=== PATIENT | male | born 1970 | race African-American/Black ===

== ENCOUNTER 2021-11-08 09:43 | Inpatient (IN) | payer OTHER ==
[2021-11-08 10:10] VITALS: BMI 30.2
[2021-11-08] MEDS ORDERED: ONDANSETRON *ODT* 4 MG TABLET SL PRN (10:44)
[2021-11-08] MEDS ORDERED: NALOXONE HCL (KLOXXADO) 8 MG SPRAY NS PRN (10:44)
[2021-11-08] MEDS ORDERED: MAG HYDROX/AL HYDROX/SIMETH 30 ML UNIT-DOSE CUP PO PRN (10:44)
[2021-11-08] MEDS ORDERED: MAGNESIUM CITRATE 300 ML BOTTLE PO PRN (10:44)
[2021-11-08] MEDS ORDERED: IBUPROFEN 400 MG TABLET (FP) PO PRN (10:44)
[2021-11-08] MEDS ORDERED: ACETAMINOPHEN 325 MG TABLET (FP) PO PRN ×2 (10:44)
[2021-11-08] MEDS ORDERED: LOPERAMIDE HCL 2 MG CAPSULE PO PRN (10:44)
[2021-11-08] MEDS ORDERED: IBUPROFEN 600 MG TABLET (FP) PO PRN (10:44)
[2021-11-08] MEDS ORDERED: DICYCLOMINE HCL 10 MG CAPSULE PO PRN (10:44)
[2021-11-08] MEDS ORDERED: MAGNESIUM HYDROX 2400MG/30ML ORAL SUSPENSION 30 ML CUP PO PRN (10:44)
[2021-11-08] MEDS ORDERED: BENZOCAINE/MENTHOL (CHLORASEPTIC ) LOZENGE MM PRN (10:44)
[2021-11-08] MEDS ORDERED: BISMUTH SUBSALICYLATE 262 MG/15 ML BTL PO PRN (10:44)
[2021-11-08] MEDS ORDERED: NICOTINE 10 MG CARTRIDGE (INHALER) IH PRN (10:44)
[2021-11-08] MEDS ORDERED: ALBUTEROL SO4 HFA INHALER IH PRN (13:33)
[2021-11-08] MEDS: hydrOXYzine PAMOATE 25 MG CAPSULE (FP) PO SCH ×3 (14:09→22:26)
[2021-11-08] MEDS: PRENATAL VITAMINS W/ FOLIC ACID TABLET (FP) PO SCH (14:09)
[2021-11-08 15:43] LABS: HEMOGLOBIN 12.8 GM/dL (11.7-16.9); MCH 30.5 pg (25.7-33.7); MCHC 32.7 g/dl (32.0-35.9); MEAN CELL VOLUME 93.2 fl (80-96); MEAN PLT VOLUME 9.4 fl (7.5-11.1); PLATELET COUNT 214 10^3/uL (134-434); RBC 4.19 M/mm3 (4.00-5.60); RDW 14.5 % (11.9-15.9); WHITE BLOOD COUNT 6.3 K/mm3 (4.0-10.0)
[2021-11-08 15:48] LABS: BLOOD UREA NITROGEN 11.5 mg/dL (7-18)
[2021-11-08 15:49] LABS: CALCIUM 8.7 mg/dL (8.5-10.1)
[2021-11-08 15:50] LABS: ALBUMIN 3.1 g/dl (3.4-5.0)
[2021-11-08 15:51] LABS: CREATININE 1.1 mg/dL (0.55-1.3)
[2021-11-08 15:53] LABS: BILIRUBIN,TOTAL 0.6 mg/dL (0.2-1); TOT PROT 6.8 g/dl (6.4-8.2)
[2021-11-08] MEDS: METHOCARBAMOL 500 MG TABLET PO PRN (17:45)
[2021-11-08] MEDS ORDERED: cloNIDine HCL 0.1 MG TABLET PO PRN (17:53)
[2021-11-08] MEDS ORDERED: methaDONE HCL 10 MG TABLET (FOR DETOX USE ONLY) PO ONE (17:53)
[2021-11-08] MEDS: THIAMINE HCL 100 MG TABLET (FP) PO SCH (22:26)
[2021-11-08] MEDS: MELATONIN 5 MG TABLETS PO SCH (22:26)
[2021-11-08] MEDS: NICOTINE POLACRILEX 4 MG GUM BUC PRN (22:29)
[2021-11-09] MEDS: hydrOXYzine PAMOATE 25 MG CAPSULE (FP) PO SCH ×5 (05:02→23:47)
[2021-11-09] MEDS ORDERED: methaDONE HCL 10 MG TABLET (FOR DETOX USE ONLY) ONE (09:26)
[2021-11-09] MEDS: PRENATAL VITAMINS W/ FOLIC ACID TABLET (FP) PO SCH (10:09)
[2021-11-09] MEDS: NICOTINE POLACRILEX 4 MG GUM BUC PRN ×3 (10:09→18:53)
[2021-11-09] MEDS: MELATONIN 5 MG TABLETS PO SCH (23:46)
[2021-11-09] MEDS: THIAMINE HCL 100 MG TABLET (FP) PO SCH (23:47)
[2021-11-10] MEDS: hydrOXYzine PAMOATE 25 MG CAPSULE (FP) PO SCH ×6 (05:17→22:11)
[2021-11-10] MEDS: NICOTINE POLACRILEX 4 MG GUM BUC PRN ×3 (06:01→17:11)
[2021-11-10] MEDS ORDERED: methaDONE HCL 10 MG TABLET (FOR DETOX USE ONLY) PO ONE (10:00)
[2021-11-10] MEDS: METHOCARBAMOL 500 MG TABLET PO PRN (10:22)
[2021-11-10] MEDS: PRENATAL VITAMINS W/ FOLIC ACID TABLET (FP) PO SCH (10:22)
[2021-11-10] MEDS: MELATONIN 5 MG TABLETS PO SCH (22:11)
[2021-11-10] MEDS: THIAMINE HCL 100 MG TABLET (FP) PO SCH (22:11)
[2021-11-11] MEDS: NICOTINE POLACRILEX 4 MG GUM BUC PRN ×3 (06:13→19:00)
[2021-11-11] MEDS: hydrOXYzine PAMOATE 25 MG CAPSULE (FP) PO SCH ×5 (06:13→23:17)
[2021-11-11] MEDS ORDERED: methaDONE HCL 10 MG TABLET (FOR DETOX USE ONLY) ONE (09:55)
[2021-11-11] MEDS: METHOCARBAMOL 500 MG TABLET PO PRN ×2 (10:25→19:00)
[2021-11-11] MEDS: PRENATAL VITAMINS W/ FOLIC ACID TABLET (FP) PO SCH (10:25)
[2021-11-11] MEDS: MELATONIN 5 MG TABLETS PO SCH (23:16)
[2021-11-11] MEDS: THIAMINE HCL 100 MG TABLET (FP) PO SCH (23:17)
[2021-11-12] MEDS: hydrOXYzine PAMOATE 25 MG CAPSULE (FP) PO SCH ×5 (06:16→22:10)
[2021-11-12] MEDS: NICOTINE POLACRILEX 4 MG GUM BUC PRN ×3 (06:28→22:11)
[2021-11-12] MEDS ORDERED: methaDONE HCL 10 MG TABLET (FOR DETOX USE ONLY) PO ONE (10:00)
[2021-11-12] MEDS: PRENATAL VITAMINS W/ FOLIC ACID TABLET (FP) PO SCH (10:12)
[2021-11-12] MEDS: METHOCARBAMOL 500 MG TABLET PO PRN ×2 (10:14→22:10)
[2021-11-12] MEDS: THIAMINE HCL 100 MG TABLET (FP) PO SCH (22:10)
[2021-11-12] MEDS: MELATONIN 5 MG TABLETS PO SCH (22:10)
[2021-11-13] MEDS: hydrOXYzine PAMOATE 25 MG CAPSULE (FP) PO SCH ×2 (05:32→11:05)
[2021-11-13] MEDS: NICOTINE POLACRILEX 4 MG GUM BUC PRN ×2 (05:33→12:10)
[2021-11-13 06:26] VITALS: TEMP 97.7
[2021-11-13 09:11] VITALS: BP 117/57; PULSE 77
[2021-11-13] MEDS: PRENATAL VITAMINS W/ FOLIC ACID TABLET (FP) PO SCH (11:05)
== END 2021-11-13 12:15 | disposition other institution (70) | DRG 773 ==
LOC: YASAS 09:43 → Y6N 12:42
PROVIDERS: ADMIT Allergy & Immunology; ATTEND Surgery
PROC: HZ2ZZZZ Detoxification Services for Substance Abuse Treatment (ICD-10-PCS; principal; 2021-11-08)
DX: F11.23 Opioid dependence with withdrawal (principal); F10.20 Alcohol dependence, uncomplicated; F14.10 Cocaine abuse, uncomplicated; F12.20 Cannabis dependence, uncomplicated; F17.213 Nicotine dependence, cigarettes, with withdrawal; F41.9 Anxiety disorder, unspecified; F32.A Depression, unspecified
CPT/HCPCS: 36415; 80053; 85027; 86780; 93005; 93010; C9803-CS; U0003; U0005

== ENCOUNTER 2021-11-13 12:26 | Inpatient (IN) | payer OTHER ==
[2021-11-13] MEDS ORDERED: guaiFENesin 200 MG/10 ML 10 ML UNIT-DOSE CUPS PO PRN (12:30)
[2021-11-13] MEDS ORDERED: MAGNESIUM CITRATE 300 ML BOTTLE PO PRN (12:30)
[2021-11-13] MEDS ORDERED: LOPERAMIDE HCL 2 MG CAPSULE PO PRN (12:30)
[2021-11-13] MEDS ORDERED: ACETAMINOPHEN 325 MG TABLET (FP) PO PRN (12:30)
[2021-11-13] MEDS ORDERED: MAGNESIUM HYDROX 2400MG/30ML ORAL SUSPENSION 30 ML CUP PO PRN (12:30)
[2021-11-13] MEDS ORDERED: P-EPHED 60MG/TRIPROLIDI 2.5MG TABLET PO PRN (12:30)
[2021-11-13] MEDS ORDERED: NICOTINE 10 MG CARTRIDGE (INHALER) IH PRN (12:30)
[2021-11-13] MEDS ORDERED: hydrOXYzine PAMOATE 25 MG CAPSULE (FP) PO PRN (12:30)
[2021-11-13] MEDS ORDERED: MAG HYDROX/AL HYDROX/SIMETH 30 ML UNIT-DOSE CUP PO PRN (12:30)
[2021-11-13] MEDS: IBUPROFEN 400 MG TABLET (FP) PO PRN (17:55)
[2021-11-13] MEDS: NICOTINE POLACRILEX 2 MG GUM BUC PRN (17:55)
[2021-11-13] MEDS: THIAMINE HCL 100 MG TABLET (FP) PO SCH (22:31)
[2021-11-13] MEDS: MELATONIN 5 MG TABLETS PO SCH (22:31)
[2021-11-14] MEDS: NICOTINE POLACRILEX 2 MG GUM BUC PRN (07:21)
[2021-11-14] MEDS: PRENATAL VITAMINS W/ FOLIC ACID TABLET (FP) PO SCH (12:09)
[2021-11-14] MEDS: IBUPROFEN 400 MG TABLET (FP) PO PRN (14:25)
[2021-11-14] MEDS: THIAMINE HCL 100 MG TABLET (FP) PO SCH (21:29)
[2021-11-14] MEDS: MELATONIN 5 MG TABLETS PO SCH (21:29)
[2021-11-15] MEDS: NICOTINE POLACRILEX 2 MG GUM BUC PRN ×3 (06:33→12:56)
[2021-11-15] MEDS: PRENATAL VITAMINS W/ FOLIC ACID TABLET (FP) PO SCH (09:32)
[2021-11-15] MEDS: THIAMINE HCL 100 MG TABLET (FP) PO SCH (22:37)
[2021-11-15] MEDS: MELATONIN 5 MG TABLETS PO SCH (22:37)
[2021-11-16] MEDS: NICOTINE POLACRILEX 2 MG GUM BUC PRN ×2 (07:56→11:25)
[2021-11-16] MEDS: PRENATAL VITAMINS W/ FOLIC ACID TABLET (FP) PO SCH (10:36)
[2021-11-16] MEDS: THIAMINE HCL 100 MG TABLET (FP) PO SCH (23:45)
[2021-11-16] MEDS: MELATONIN 5 MG TABLETS PO SCH (23:45)
[2021-11-17] MEDS: NICOTINE POLACRILEX 2 MG GUM BUC PRN ×3 (06:34→18:01)
[2021-11-17] MEDS: PRENATAL VITAMINS W/ FOLIC ACID TABLET (FP) PO SCH (10:22)
[2021-11-17] MEDS: MELATONIN 5 MG TABLETS PO SCH (21:44)
[2021-11-17] MEDS: THIAMINE HCL 100 MG TABLET (FP) PO SCH (21:44)
[2021-11-18] MEDS: NICOTINE POLACRILEX 2 MG GUM BUC PRN ×3 (06:20→21:19)
[2021-11-18] MEDS: PRENATAL VITAMINS W/ FOLIC ACID TABLET (FP) PO SCH (10:42)
[2021-11-18] MEDS: MELATONIN 5 MG TABLETS PO SCH (21:19)
[2021-11-18] MEDS: THIAMINE HCL 100 MG TABLET (FP) PO SCH (21:19)
[2021-11-19] MEDS: NICOTINE POLACRILEX 2 MG GUM BUC PRN ×2 (09:15→16:22)
[2021-11-19] MEDS: PRENATAL VITAMINS W/ FOLIC ACID TABLET (FP) PO SCH (11:01)
[2021-11-19] MEDS: MELATONIN 5 MG TABLETS PO SCH (23:57)
[2021-11-19] MEDS: THIAMINE HCL 100 MG TABLET (FP) PO SCH (23:57)
[2021-11-20] MEDS: NICOTINE POLACRILEX 2 MG GUM BUC PRN ×2 (06:12→15:40)
[2021-11-20] MEDS: PRENATAL VITAMINS W/ FOLIC ACID TABLET (FP) PO SCH (11:24)
[2021-11-20] MEDS: MELATONIN 5 MG TABLETS PO SCH (22:00)
[2021-11-20] MEDS: THIAMINE HCL 100 MG TABLET (FP) PO SCH (22:00)
[2021-11-21] MEDS: NICOTINE POLACRILEX 2 MG GUM BUC PRN ×4 (07:48→19:00)
[2021-11-21] MEDS: PRENATAL VITAMINS W/ FOLIC ACID TABLET (FP) PO SCH (10:09)
[2021-11-21] MEDS: THIAMINE HCL 100 MG TABLET (FP) PO SCH (21:34)
[2021-11-21] MEDS: MELATONIN 5 MG TABLETS PO SCH (21:34)
[2021-11-22] MEDS: NICOTINE POLACRILEX 2 MG GUM BUC PRN ×2 (06:36→17:52)
[2021-11-22] MEDS: PRENATAL VITAMINS W/ FOLIC ACID TABLET (FP) PO SCH (11:04)
[2021-11-22] MEDS: THIAMINE HCL 100 MG TABLET (FP) PO SCH (22:25)
[2021-11-22] MEDS: MELATONIN 5 MG TABLETS PO SCH (22:25)
[2021-11-23] MEDS: NICOTINE POLACRILEX 2 MG GUM BUC PRN ×2 (06:16→17:58)
[2021-11-23] MEDS: PRENATAL VITAMINS W/ FOLIC ACID TABLET (FP) PO SCH (10:58)
[2021-11-23] MEDS: THIAMINE HCL 100 MG TABLET (FP) PO SCH (22:10)
[2021-11-23] MEDS: MELATONIN 5 MG TABLETS PO SCH (22:10)
[2021-11-24] MEDS: NICOTINE POLACRILEX 2 MG GUM BUC PRN ×4 (06:19→21:38)
[2021-11-24] MEDS: PRENATAL VITAMINS W/ FOLIC ACID TABLET (FP) PO SCH (10:29)
[2021-11-24] MEDS: MELATONIN 5 MG TABLETS PO SCH (21:37)
[2021-11-24] MEDS: THIAMINE HCL 100 MG TABLET (FP) PO SCH (21:37)
[2021-11-25] MEDS: NICOTINE POLACRILEX 2 MG GUM BUC PRN ×2 (06:56→14:42)
[2021-11-25] MEDS: PRENATAL VITAMINS W/ FOLIC ACID TABLET (FP) PO SCH (10:46)
[2021-11-25] MEDS: MELATONIN 5 MG TABLETS PO SCH (21:53)
[2021-11-25] MEDS: THIAMINE HCL 100 MG TABLET (FP) PO SCH (21:53)
[2021-11-26] MEDS: NICOTINE POLACRILEX 2 MG GUM BUC PRN ×4 (07:05→17:56)
[2021-11-26] MEDS: PRENATAL VITAMINS W/ FOLIC ACID TABLET (FP) PO SCH (10:01)
[2021-11-26] MEDS: MELATONIN 5 MG TABLETS PO SCH (21:47)
[2021-11-26] MEDS: THIAMINE HCL 100 MG TABLET (FP) PO SCH (21:47)
[2021-11-27] MEDS: NICOTINE POLACRILEX 2 MG GUM BUC PRN ×2 (06:10→15:13)
[2021-11-27] MEDS: PRENATAL VITAMINS W/ FOLIC ACID TABLET (FP) PO SCH (10:40)
[2021-11-27] MEDS: MELATONIN 5 MG TABLETS PO SCH (22:38)
[2021-11-27] MEDS: THIAMINE HCL 100 MG TABLET (FP) PO SCH (22:38)
[2021-11-28] MEDS: PRENATAL VITAMINS W/ FOLIC ACID TABLET (FP) PO SCH (08:15)
[2021-11-28] MEDS: NICOTINE POLACRILEX 2 MG GUM BUC PRN ×3 (08:53→18:49)
[2021-11-28] MEDS: MELATONIN 5 MG TABLETS PO SCH (21:25)
[2021-11-28] MEDS: THIAMINE HCL 100 MG TABLET (FP) PO SCH (21:25)
[2021-11-29] MEDS: NICOTINE POLACRILEX 2 MG GUM BUC PRN ×3 (06:30→16:49)
[2021-11-29] MEDS: PRENATAL VITAMINS W/ FOLIC ACID TABLET (FP) PO SCH (09:52)
[2021-11-29] MEDS: THIAMINE HCL 100 MG TABLET (FP) PO SCH (21:45)
[2021-11-29] MEDS: MELATONIN 5 MG TABLETS PO SCH (21:45)
[2021-11-30] MEDS: NICOTINE POLACRILEX 2 MG GUM BUC PRN ×2 (07:00→17:51)
[2021-11-30] MEDS: PRENATAL VITAMINS W/ FOLIC ACID TABLET (FP) PO SCH (11:23)
[2021-11-30] MEDS: MELATONIN 5 MG TABLETS PO SCH (22:48)
[2021-11-30] MEDS: THIAMINE HCL 100 MG TABLET (FP) PO SCH (22:49)
[2021-12-01] MEDS: IBUPROFEN 400 MG TABLET (FP) PO PRN (08:21)
[2021-12-01] MEDS: NICOTINE POLACRILEX 2 MG GUM BUC PRN ×3 (08:22→18:36)
[2021-12-01] MEDS: PRENATAL VITAMINS W/ FOLIC ACID TABLET (FP) PO SCH (11:17)
[2021-12-01] MEDS: THIAMINE HCL 100 MG TABLET (FP) PO SCH (22:02)
[2021-12-01] MEDS: MELATONIN 5 MG TABLETS PO SCH (22:02)
[2021-12-02] MEDS: NICOTINE POLACRILEX 2 MG GUM BUC PRN ×3 (07:02→17:11)
[2021-12-02] MEDS: PRENATAL VITAMINS W/ FOLIC ACID TABLET (FP) PO SCH (09:46)
[2021-12-02] MEDS: MELATONIN 5 MG TABLETS PO SCH (23:43)
[2021-12-02] MEDS: THIAMINE HCL 100 MG TABLET (FP) PO SCH (23:43)
[2021-12-03] MEDS: NICOTINE POLACRILEX 2 MG GUM BUC PRN ×4 (06:21→17:51)
[2021-12-03] MEDS: PRENATAL VITAMINS W/ FOLIC ACID TABLET (FP) PO SCH (10:30)
[2021-12-03] MEDS: MELATONIN 5 MG TABLETS PO SCH (22:08)
[2021-12-03] MEDS: THIAMINE HCL 100 MG TABLET (FP) PO SCH (22:08)
[2021-12-04] MEDS: PRENATAL VITAMINS W/ FOLIC ACID TABLET (FP) PO SCH (10:00)
[2021-12-04] MEDS: NICOTINE POLACRILEX 2 MG GUM BUC PRN ×2 (10:00→15:28)
[2021-12-04] MEDS: THIAMINE HCL 100 MG TABLET (FP) PO SCH (22:26)
[2021-12-04] MEDS: MELATONIN 5 MG TABLETS PO SCH (22:26)
[2021-12-05 06:40] VITALS: TEMP 97.7
[2021-12-05] MEDS: NICOTINE POLACRILEX 2 MG GUM BUC PRN ×3 (06:42→19:26)
[2021-12-05] MEDS: IBUPROFEN 400 MG TABLET (FP) PO PRN (10:48)
[2021-12-05] MEDS: PRENATAL VITAMINS W/ FOLIC ACID TABLET (FP) PO SCH (10:54)
[2021-12-05] MEDS: THIAMINE HCL 100 MG TABLET (FP) PO SCH (22:37)
[2021-12-05] MEDS: MELATONIN 5 MG TABLETS PO SCH (22:37)
[2021-12-06 06:41] VITALS: BP 115/74; PULSE 87
[2021-12-06] MEDS: NICOTINE POLACRILEX 2 MG GUM BUC PRN (08:35)
== END 2021-12-06 09:25 | disposition home or self-care (01) | DRG 772 ==
LOC: YASAS 12:26 → Y3W 12:27
PROVIDERS: ADMIT Allergy & Immunology; ATTEND Psychiatry & Neurology Pain Medicine
PROC: HZ42ZZZ Group Counseling for Substance Abuse Treatment, Cognitive-Behavioral (ICD-10-PCS; principal; 2021-11-13)
DX: F11.20 Opioid dependence, uncomplicated (principal); F10.20 Alcohol dependence, uncomplicated; F14.10 Cocaine abuse, uncomplicated; F12.20 Cannabis dependence, uncomplicated; F17.210 Nicotine dependence, cigarettes, uncomplicated; Z56.0 Unemployment, unspecified; Z59.00 Homelessness unspecified